=== PATIENT | male | born 1950 | race Caucasian/White ===

== ENCOUNTER 2021-07-09 12:39 | Inpatient (IN) ==
[2021-07-09] MEDS ORDERED: SODIUM CHLORIDE 0.9% 1000ML 1,000 ML IV ONE (13:21)
[2021-07-09 14:03] LABS: Basophils # (auto) 0.02 K/uL (0-0.2); Basophils % (auto) 0.2 %; Eosinophils # (auto) 0.06 K/uL (0-0.5); Eosinophils % (auto) 0.5 %; Hematocrit (blood only) 35.5 % (42-52); Hemoglobin 11.1 g/dL (14.0-18.0); Immature Granulocytes # (auto) 0.03 K/uL (0.00-0.02); Immature Granulocytes % (auto) 0.3 %; Lymphocytes # (auto) 1.18 K/uL (1.2-3.4); Lymphocytes % (auto) 10.6 %; Mean Corpuscular Hemoglobin 24.1 pg (25-34); Mean Corpuscular Hgb Conc 31.3 g/dL (32-36); Mean Platelet Volume 10.3 fL (7.4-10.4); Monocytes % (auto) 9.8 %; Neutrophils # (auto) 8.79 K/uL (1.4-6.5); Neutrophils % (auto) 78.6 %; Platelet Count 312 K/uL (130-400); RDW Coefficient of Variation 18.4 % (11.5-14.5); RDW Standard Deviation 51.9 fL (36.4-46.3); Red Blood Count 4.61 M/uL (4.7-6.1); White Blood Count 11.18 K/uL (4.8-10.8)
--- NOTE | 2021-07-09 14:08 | Emergency Department Note ---
Impression & Plan AMS (altered mental status), Hypomagnesemia, Acute hypotension ED Provider Note NAME: SHEA ALMONTE AGE: 70 SEX: M : 1950 ARRIVES VIA: Walk-In INFORMANT: Patient, the patient's daughter ED PROVIDER(S): Emile Zapata DO CHIEF COMPLAINT: Altered mental status HPI: The patient is a 70-year-old male who presented to the emergency department because of worsening confusion. The patient had a fall recently. He has been s een at a different emergency department twice because of the fall. He states he has had lower extremity pain and injury. He notices swelling in his left knee. He states he has had difficulty ambulating because of this. The patient denies having any vomiting. He denies having any fever. He has had generalized weakness. He has been having trouble getting around. According to his daughter he has had at least 1 episode where he drove the car until it ran out of gas because he forgot to get gas and then proceeded to walk from that point. She has been contacted by many of his friends because are concerned about his alteration in mental status. The patient was not seen by his family doctor. He states he has been compliant with his medications but then his daughter states he has not been taking his Coumadin correctly. He denies having any chest pain but does complain of striking his head. ROS: See above HPI for pertinent positives & negatives. A total of 10 systems reviewed and were otherwise negative. PAST MEDICAL HISTORY: See Below PAST SURGICAL HISTORY: See Below FAMILY HISTORY: See Below SOCIAL HISTORY: See Below HOME MEDICATIONS: See Below ALLERGIES: See Below VITALS: See Below PHYSICAL EXAMINATION: GENERAL: The patient is awake and nonanxious appearing. He answers questions appropriately. He was covered in stool upon arrival and was being cleaned by the nursing staff when I entered the room. EYES: The conjunctivae are clear. The pupils are round and reactive. EARS, NOSE, MOUTH AND THROAT: The nose is without any evidence of any deformity. NECK: The neck is nontender and supple. RESPIRATORY: Normal respiratory effort is noted there is no evidence of wheezing rhonchi or rales CARDIOVASCULAR: Regular rate and rhythm noted there no murmurs rubs or gallops normal S1 normal S2. GASTROINTESTINAL: The abdomen is soft. Abdomen is nontender. MUSCULOSKELETAL/EXTREMITIES: There is pain with range of motion testing of the left knee as well as left hip. There is no deformity of the left hip. There is some tenderness over the lateral aspect of the left knee. There is no significant effusion. SKIN: There is no obvious evidence of any rash. There are no petechiae, pallor or cyanosis noted. NEUROLOGIC: Patient is awake alert and oriented x3 strength is symmetric patellar reflexes are 2+ bilaterally MEDICAL DECISION MAKING: The patient is a 70-year-old male who presented to the emergency department for an evaluation of altered mental status. The patient has had worsening altered mental status over the course of the last few weeks. He has had falls. He has been seen at a different ER multiple times. The patient normally manages his care himself. He drives himself and is able to take his own medications. The patient has been having decline and presented to the emergency department covered in stool and was hypotensive. I discussed the patient's laboratory and radiographic studies with him. Given his findings I also discussed his case with the on-call hospitalist for further inpatient management. He was treated with IV fluids as well as IV magnesium. Triage Nursing notes reviewed. Prior medical records reviewed Vital Signs: reviewed and remarkable for initial hypotension. Differential diagnosis: Infection, hypoglycemia, electrolyte abnormalities, overdose, toxicologic, cardiac sources, intracerebral event, neurologic, trauma, as well as other pathologies. ER treatment provided: See below Diagnostics interpreted by me: ECG: My interpretation is normal sinus rhythm at 70 bpm. There is no ectopy. There is no acute ST segment abnormalities noted. No previous tracing was available. EKG was obtained in the emergency department. Cardiac Monitoring: An order was placed for continuous cardiac monitoring. The monitor shows a rate of 114 bpm with sinus tachycardia Laboratory studies: As stated above and show below. Imaging studies: See below Consultation(s): I discussed this case with Sara who is on for the [facility] hospitalist group. Past Med/Surg History Medical History Cerebral contusion Contusion of right hip Fall Head injury Scalp hematoma Scalp laceration Surgical History History of coronary artery stent placement Social History Smoking Status: Former smoker Feels Safe at Home: Yes Allergies Allergies Allergy/AdvReac Type Severity Reaction Status Date / Time No Known Allergies Allergy Unverified 12/20/19 12:28 Home Meds Home Medications Medication Instructions Recorded Confirmed atorvastatin 80 mg tablet 40 mg PO QPM tab 12/17/19 12/17/19 citalopram 40 mg tablet 20 mg PO DAILY 12/17/19 12/17/19 cyanocobalamin (vitamin B-12) 500 500 mcg PO DAILY 12/17/19 12/17/19 mcg tablet lisinopril 20 mg tablet 20 mg PO DAILY 12/17/19 12/17/19 metformin 850 mg tablet 850 mg PO TID 12/17/19 12/17/19 warfarin 5 mg tablet 5 mg PO DAILY 12/17/19 12/17/19 cholecalciferol (vitamin D3) 125 125 mcg PO DAILY 12/20/19 12/20/19 mcg (5,000 unit) capsule glipizide 5 mg tablet 5 mg PO BID 12/20/19 12/20/19 lisinopril 10 mg tablet 10 mg PO DAILY 12/20/19 12/20/19 metformin 500 mg tablet 500 mg PO BID 12/20/19 12/20/19 metoprolol tartrate 50 mg tablet 25 mg PO BID tab 12/20/19 12/20/19 Results & Data (ED) Vital Signs Vital Signs - 24 hr 07/09/21 12:47 07/09/21 13:54 07/09/21 14:18 Temperature 36.8 C Temperature Source Temporal Artery Scan Pulse Rate 87 Pulse Rate [Finger] 79 Respiratory Rate 14 16 18 Respiratory Effort / Characteristics Non-Labored Spontaneous Non-Labored Respiratory Depth Normal Respiratory Pattern Regular Blood Pressure 86/57 L Blood Pressure [Left Arm] 127/77 Blood Pressure Mean 66 Blood Pressure Mean [Left Arm] 93 Blood Pressure Position Sitting Pulse Oximetry 92 95 98 Oxygen Delivery Method Room Air Room Air Room Air Sepsis Recent Fever Within 48 Hours No Sepsis New/Unexplained Change in Mental Status No Sepsis Action Taken by Nursing No Action Required 07/09/21 14:30 07/09/21 15:00 07/09/21 15:22 Temperature Temperature Source Pulse Rate Pulse Rate [Finger] 114 H Respiratory Rate 19 21 21 Respiratory Effort / Characteristics Non-Labored Non-Labored Non-Labored Respiratory Depth Respiratory Pattern Blood Pressure Blood Pressure [Left Arm] 137/88 Blood Pressure Mean Blood Pressure Mean [Left Arm] 104 Blood Pressure Position Pulse Oximetry 98 98 98 Oxygen Delivery Method Room Air Room Air Room Air Sepsis Recent Fever Within 48 Hours Sepsis New/Unexplained Change in Mental Status Sepsis Action Taken by Group Home Medications Current Medication List: was personally reviewed by me Laboratory Data Attestation: I reviewed the patient's lab results. Result diagrams: 07/09/21 13:41 07/09/21 13:41 Lab Results 07/09/21 07/09/21 07/09/21 Range/Units 13:41 13:41 13:41 WBC (4.8-10.8) K/uL RBC (4.7-6.1) M/uL Hgb (14.0-18.0) g/dL Hct (42-52) % MCV (80-100) fL MCH (25-34) pg MCHC (32-36) g/dL RDW Std Deviation (36.4-46.3) fL RDW Coeff of Karuna (11.5-14.5) % Plt Count (130-400) K/uL MPV (7.4-10.4) fL Immature Gran % (Auto) % Neut % (Auto) % Lymph % (Auto) % [place] % (Auto) % Eos % (Auto) % Baso % (Auto) % Neut # (Auto) (1.4-6.5) K/uL Lymph # (Auto) (1.2-3.4) K/uL [place] # (Auto) (0.11-0.59) K/uL Eos # (Auto) (0-0.5) K/uL Baso # (Auto) (0-0.2) K/uL Immature Gran # (Auto) (0.00-0.02) K/uL ESR 45 H (0-20) mm/hr PT (9.0-12.0) Seconds INR (0.9-1.1) APTT (21.0-31.0) Seconds PTT Ratio Sodium 137 (136-145) mmol/L Potassium 3.6 (3.5-5.1) mmol/L Chloride 101 (98-107) mmol/L Carbon Dioxide 25 (21-32) mmol/L Anion Gap 11 (3-11) BUN 37 H (6-23) mg/dl Creatinine 1.13 (0.6-1.4) mg/dl Est Cr Clr Drug Dosing 63.9 ml/min Est GFR ( Amer) 75.4 ml/min Est GFR (Non-Af Amer) 65.0 ml/min BUN/Creatinine Ratio 32.7 H (10-20) Glucose 117 H (70-99(Fasting)) mg/dl Lactate (0.4-2.0) mmol/L Calcium 9.2 (8.5-10.1) mg/dl Magnesium 1.5 L (1.7-2.4) mg/dl Total Bilirubin 0.9 (0.2-1.0) mg/dl AST 27 (13-39) U/L ALT 15 (7-52) U/L Alkaline Phosphatase 149 H (34-104) U/L Troponin I High Sens 3.7 (0-20) pg/ml C-Reactive Protein < 0.50 (0-0.5) mg/dl Total Protein 7.0 (6.0-8.3) gm/dl Albumin 4.1 (3.4-5.0) gm/dl Globulin 2.9 (2.5-4.0) gm/dl Albumin/Globulin Ratio 1.4 (0.9-2) Procalcitonin < 0.05 (0-0.5) ng/ml Urine Color Urine Appearance (Clear) Urine pH (4.5-7.5) Ur Specific [place] (1.000-1.030) Urine Protein (Negative) Urine Glucose (UA) (Negative) Urine Ketones (Negative) Urine Blood (Negative) Urine Nitrite (Negative) Urine Bilirubin (Negative) Urine Urobilinogen (Negative) Ur Leukocyte Esterase (Negative) Urine WBC (Auto) (0-5) /hpf Urine RBC (Auto) (0-4) /hpf U Hyaline Cast (Auto) (0-5) /lpf U Epithel Cells (Auto) (0-5) /lpf Urine Bacteria (Auto) (Negative) Urine Yeast SARS-CoV-2, RNA, NAAT (NEGATIVE) 07/09/21 07/09/21 07/09/21 Range/Units 13:41 13:41 13:41 WBC 11.18 H (4.8-10.8) K/uL RBC 4.61 L (4.7-6.1) M/uL Hgb 11.1 L (14.0-18.0) g/dL Hct 35.5 L (42-52) % MCV 77.0 L (80-100) fL MCH 24.1 L (25-34) pg MCHC 31.3 L (32-36) g/dL RDW Std Deviation 51.9 H (36.4-46.3) fL RDW Coeff of Karuna 18.4 H (11.5-14.5) % Plt Count 312 (130-400) K/uL MPV 10.3 (7.4-10.4) fL Immature Gran % (Auto) 0.3 % Neut % (Auto) 78.6 % Lymph % (Auto) 10.6 % [place] % (Auto) 9.8 % Eos % (Auto) 0.5 % Baso % (Auto) 0.2 % Neut # (Auto) 8.79 H (1.4-6.5) K/uL Lymph # (Auto) 1.18 L (1.2-3.4) K/uL [place] # (Auto) 1.10 H (0.11-0.59) K/uL Eos # (Auto) 0.06 (0-0.5) K/uL Baso # (Auto) 0.02 (0-0.2) K/uL Immature Gran # (Auto) 0.03 H (0.00-0.02) K/uL ESR (0-20) mm/hr PT 11.1 (9.0-12.0) Seconds INR 1.0 (0.9-1.1) APTT 24.5 (21.0-31.0) Seconds PTT Ratio 0.9 Sodium (136-145) mmol/L Potassium (3.5-5.1) mmol/L Chloride (98-107) mmol/L Carbon Dioxide (21-32) mmol/L Anion Gap (3-11) BUN (6-23) mg/dl Creatinine (0.6-1.4) mg/dl Est Cr Clr Drug Dosing ml/min Est GFR ( Amer) ml/min Est GFR (Non-Af Amer) ml/min BUN/Creatinine Ratio (10-20) Glucose (70-99(Fasting)) mg/dl Lactate 1.0 (0.4-2.0) mmol/L Calcium (8.5-10.1) mg/dl Magnesium (1.7-2.4) mg/dl Total Bilirubin (0.2-1.0) mg/dl AST (13-39) U/L ALT (7-52) U/L Alkaline Phosphatase (34-104) U/L Troponin I High Sens (0-20) pg/ml C-Reactive Protein (0-0.5) mg/dl Total Protein (6.0-8.3) gm/dl Albumin (3.4-5.0) gm/dl Globulin (2.5-4.0) gm/dl Albumin/Globulin Ratio (0.9-2) Procalcitonin (0-0.5) ng/ml Urine Color Urine Appearance (Clear) Urine pH (4.5-7.5) Ur Specific [place] (1.000-1.030) Urine Protein (Negative) Urine Glucose (UA) (Negative) Urine Ketones (Negative) Urine Blood (Negative) Urine Nitrite (Negative) Urine Bilirubin (Negative) Urine Urobilinogen (Negative) Ur Leukocyte Esterase (Negative) Urine WBC (Auto) (0-5) /hpf Urine RBC (Auto) (0-4) /hpf U Hyaline Cast (Auto) (0-5) /lpf U Epithel Cells (Auto) (0-5) /lpf Urine Bacteria (Auto) (Negative) Urine Yeast SARS-CoV-2, RNA, NAAT (NEGATIVE) 07/09/21 07/09/21 Range/Units 15:00 15:25 WBC (4.8-10.8) K/uL RBC (4.7-6.1) M/uL Hgb (14.0-18.0) g/dL Hct (42-52) % MCV (80-100) fL MCH (25-34) pg MCHC (32-36) g/dL RDW Std Deviation (36.4-46.3) fL RDW Coeff of Karuna (11.5-14.5) % Plt Count (130-400) K/uL MPV (7.4-10.4) fL Immature Gran % (Auto) % Neut % (Auto) % Lymph % (Auto) % [place] % (Auto) % Eos % (Auto) % Baso % (Auto) % Neut # (Auto) (1.4-6.5) K/uL Lymph # (Auto) (1.2-3.4) K/uL [place] # (Auto) (0.11-0.59) K/uL Eos # (Auto) (0-0.5) K/uL Baso # (Auto) (0-0.2) K/uL Immature Gran # (Auto) (0.00-0.02) K/uL ESR (0-20) mm/hr PT (9.0-12.0) Seconds INR (0.9-1.1) APTT (21.0-31.0) Seconds PTT Ratio Sodium (136-145) mmol/L Potassium (3.5-5.1) mmol/L Chloride (98-107) mmol/L Carbon Dioxide (21-32) mmol/L Anion Gap (3-11) BUN (6-23) mg/dl Creatinine (0.6-1.4) mg/dl Est Cr Clr Drug Dosing ml/min Est GFR ( Amer) ml/min Est GFR (Non-Af Amer) ml/min BUN/Creatinine Ratio (10-20) Glucose (70-99(Fasting)) mg/dl Lactate (0.4-2.0) mmol/L Calcium (8.5-10.1) mg/dl Magnesium (1.7-2.4) mg/dl Total Bilirubin (0.2-1.0) mg/dl AST (13-39) U/L ALT (7-52) U/L Alkaline Phosphatase (34-104) U/L Troponin I High Sens (0-20) pg/ml C-Reactive Protein (0-0.5) mg/dl Total Protein (6.0-8.3) gm/dl Albumin (3.4-5.0) gm/dl Globulin (2.5-4.0) gm/dl Albumin/Globulin Ratio (0.9-2) Procalcitonin (0-0.5) ng/ml Urine Color Dark Yellow Urine Appearance Clear (Clear) Urine pH 5.0 (4.5-7.5) Ur Specific [place] 1.025 (1.000-1.030) Urine Protein Trace H (Negative) Urine Glucose (UA) Negative (Negative) Urine Ketones 2+ H (Negative) Urine Blood Negative (Negative) Urine Nitrite Negative (Negative) Urine Bilirubin Negative (Negative) Urine Urobilinogen Negative (Negative) Ur Leukocyte Esterase Negative (Negative) Urine WBC (Auto) 1-5 (0-5) /hpf Urine RBC (Auto) 0-4 (0-4) /hpf U Hyaline Cast (Auto) 5-10 H (0-5) /lpf U Epithel Cells (Auto) 10-20 H (0-5) /lpf Urine Bacteria (Auto) Negative (Negative) Urine Yeast Not Reportable SARS-CoV-2, RNA, NAAT NEGATIVE (NEGATIVE) Administered Medications Magnesium Sulfate/Dextrose (Magnesium Sulfate / D5w) 1 gm in 100 mls @ 100 mls/hr IV Q1H TATIANA Stop: 07/09/21 17:10 Last Admin: 07/09/21 15:20 Dose: 100 mls/hr Documented by: [id number] Discontinued Medications Sodium Chloride (Nss 1000ml) 1,000 mls @ 999 mls/hr IV .Q1H1M ONE Stop: 07/09/21 14:21 Last Infusion: 07/09/21 15:17 Dose: 0 mls/hr Documented by: [id number] Admin: 07/09/21 14:14 Dose: 999 mls/hr Documented by: [id number] Imaging Data Radiologist's Impression: Cervical Spine CT 07/09/21 13:21 CT OF THE CERVICAL SPINE WITHOUT CONTRAST CLINICAL HISTORY: Fall. COMPARISON STUDY: Cervical spine CT November 11, 2014. TECHNIQUE: Helical axial images of the cervical spine were obtained without IV contrast. Sagittal and coronal reconstructions were viewed. Automated exposure control was utilized for the study. A dose lowering technique was utilized adhering to the principles of ALARA. FINDINGS: Alignment of the cervical spine is anatomic. Vertebral body heights are maintained. No acute cervical spine fracture or subluxation is present. There is no prevertebral edema. Facet joints are intact. Moderate multilevel degenerative disc disease and facet arthrosis is present. Loss of height of the superior endplate of T2 is unchanged since CT of November 11, 2014. Slight loss of height of the superior endplate of T1 is also unchanged. No acute fracture is identified on this exam. IMPRESSION: No acute cervical spine fracture or subluxation. ACT 112: Negative or not required by law. Electronically signed by: Jae Franklin M.D. 07/09/2021 2:[address] 07/09/21 13:21 CT head/brain wo con CLINICAL HISTORY: fall Technique: Contiguous axial CT images of the head were acquired from the base of the skull to the vertex without intravenous contrast administration. Images were viewed in brain, subdural and bone windows. Automated dose lowering techniques and/or adjustment according to patient size were utilized for this exam. Comparison: Comparison is made to CT head 1950 Findings: Areas of decreased attenuation are present in the periventricular and subcortical white matter bilaterally consistent with small vessel ischemic disease. Generalized cerebral atrophy with commensurate enlargement of the ventricles, sulci, and cisterns is also present. There is no acute intracranial hemorrhage or evidence of acute territorial infarction. No shift of the midline structures, mass effect, or extra-axial abnormalities are shown. Atherosclerotic calcifications are present in the intracranial segments of the internal carotid arteries. Imaged portions of the paranasal sinuses and mastoid air cells are clear. The orbits appear normal. There are no acute fractures of the calvaria or scalp swelling. Impression: No acute intracranial hemorrhage, no evidence of acute territorial infarction or other acute intracranial disease process. ACT 112: Negative or not required by law. Electronically signed by: Marcos Chanel M.D. 07/09/2021 2:22 PM Hip/Pelvis X-Ray 07/09/21 13:21 XR hip LT 2V w pelvis CLINICAL HISTORY: fall TECHNIQUE: 2 views of the left hip and single frontal view of the pelvis were obtained. Single view of the right pelvis was obtained pain. Comparison: None available at the time of this dictation. FINDINGS: There is no evidence of an acute fracture. Severe degenerative changes are seen in the bilateral hip joints. No soft tissue abnormality is seen. IMPRESSION: Severe degenerative changes without evidence of acute abnormality. ACT 112: Negative or not required by law. Electronically signed by: Marcos Chanel M.D. 07/09/2021 2:45 PM Knee X-Ray 07/09/21 13:21 XR knee LT 1 or 2V routine HISTORY: 70 years-old Male fall acute pain and swelling of the left knee status post fall COMPARISON: None TECHNIQUE: 2 views of the left knee FINDINGS: Total joint arthroplasty with patellar resurfacing. Trace joint effusion. Elia icated ossifications within the suprapatellar tissues. No acute fracture, dislocation or evidence of hardware loosening. Ill-defined ovoid lucencies project over the distal femoral diaphysis on the AP view, without correlate on the lateral projection. These may be projectional. IMPRESSION: 1. No acute fracture. 2. Unremarkable appearance of the total joint arthroplasty. ACT 112: Negative or not required by law. The above report was generated using voice recognition software. It may contain grammatical, syntax or spelling errors. Electronically signed by: Kemal Ibrahim M.D. 07/09/2021 2:53 PM Chest X-Ray 07/09/21 13:22 SINGLE VIEW CHEST CLINICAL HISTORY: Sepsis. FINDINGS: An AP, portable, upright chest radiograph is compared to study dated 05/27/2013 and correlated with chest CT dated 11/11/2014. The heart is top normal for projection noting atherosclerotic calcification of the thoracic aorta. The lungs and pleural spaces are clear. No pneumothorax is seen. The skeletal structures are osteopenic. There are healed left-sided rib fractures. Postsurgical change is noted in the upper abdomen. IMPRESSION: No active disease in the chest. ACT 112: Negative or not required by law. Electronically signed by: Jarret Larkin M.D. 07/09/2021 2:40 PM Discharge Plan Visit Data Chief Complaint: Altered Mental Status Stated Complaint: ALTERED MENTAL STATUS ED Provider: Emile Zapata Discharge Problem: AMS (altered mental status), Hypomagnesemia, Acute hypotension Patient Disposition: Being Evaluated by Hospitalist Forms Stand Alone Forms: [facility] Prescriptions Prescriptions: No Action citalopram 40 mg tablet 20 mg PO DAILY RF: 0 atorvastatin 80 mg tablet 40 mg PO QPM RF: 0 cyanocobalamin (vitamin B-12) 500 mcg tablet 500 mcg PO DAILY RF: 0 lisinopril 20 mg tablet 20 mg PO DAILY RF: 0 warfarin 5 mg tablet 5 mg PO DAILY RF: 0 metformin 850 mg tablet 850 mg PO TID RF: 0 cholecalciferol (vitamin D3) 125 mcg (5,000 unit) capsule 125 mcg PO DAILY RF: 0 metformin 500 mg tablet 500 mg PO BID RF: 0 glipizide 5 mg tablet 5 mg PO BID RF: 0 lisinopril 10 mg tablet 10 mg PO DAILY RF: 0 metoprolol tartrate 50 mg tablet 25 mg PO BID RF: 0 Referrals Referrals: Fye,Sagrario, PA-C [Primary Care Provider] - Discharge Problem: AMS (altered mental status) Qualifiers: Altered mental status type: unspecified Qualified Code(s): R41.82 - Altered mental status, unspecified
[2021-07-09 14:18] LABS: Partial Thromboplastin Ratio 0.9; Partial Thromboplastin Time 24.5 Seconds (21.0-31.0); Prothrombin Time 11.1 Seconds (9.0-12.0)
--- NOTE | 2021-07-09 14:23 | CT Scan Report ---
CT head/brain wo con CLINICAL HISTORY: fall Technique: Contiguous axial CT images of the head were acquired from the base of the skull to the umu adonay without intravenous contrast administration. Images were viewed in brain, subdural and bone [facility]. Automated dose lowering techniques and/or adjustment according to patient size were utilized for this exam. Comparison: Comparison is made to CT head 1950 Findings: Areas of decreased attenuation are present in the periventricular and subcortical white matter bilate rally consistent with small vessel ischemic disease. Generalized cerebral atrophy with commensurate e nlargement of the ventricles, sulci, and cisterns is also present. There is no acute intracranial hem orrhage or evidence of acute territorial infarction. No shift of the midline structures, mass effect, or extra-axial abnormalities are shown. Atherosclerotic calcifications are present in the intracran ial segments of the internal carotid arteries. Imaged portions of the paranasal sinuses and mastoid air cells are clear. The orbits appear normal. There are no acute fractures of the calvaria or scalp swelling. Impression: No acute intracranial hemorrhage, no evidence of acute territorial infarction or other acute intracra nial disease process. ACT 112: Negative or not required by law. Electronically signed by: Marcos Chanel M.D. 07/09/2021 2:22 PM
--- NOTE | 2021-07-09 14:30 | CT Scan Report ---
CT OF THE CERVICAL SPINE WITHOUT CONTRAST CLINICAL HISTORY: Fall. COMPARISON STUDY: Cervical spine CT November 11, 2014. TECHNIQUE: Helical axial images of the cervical spine were obtained without IV contrast. Sagittal a nd coronal reconstructions were viewed. Automated exposure control was utilized for the study. A do se lowering technique was utilized adhering to the principles of ALARA. FINDINGS: Alignment of the cervical spine is anatomic. Vertebral body heights are maintained. No acut e cervical spine fracture or subluxation is present. There is no prevertebral edema. Facet joints are intact. Moderate multilevel degenerative disc disease and facet arthrosis is present. Loss of heigh t of the superior endplate of T2 is unchanged since CT of November 11, 2014. Slight loss of height o f the superior endplate of T1 is also unchanged. No acute fracture is identified on this exam. IMPRESSION: No acute cervical spine fracture or subluxation. ACT 112: Negative or not required by law. Electronically signed by: Jae Franklin M.D. 07/09/2021 2:29 PM
[2021-07-09 14:37] LABS: Alanine Aminotransferase 15 U/L (7-52); Albumin Globulin Ratio 1.4 (0.9-2); Albumin Level 4.1 gm/dl (3.4-5.0); Alkaline Phosphatase 149 U/L (34-104); Anion Gap 11 (3-11); Aspartate Aminotransferase 27 U/L (13-39); BUN Creatinine Ratio 32.7 (10-20); Bilirubin,Total 0.9 mg/dl (0.2-1.0); Blood Urea Nitrogen 37 mg/dl (6-23); C Reactive Protein < 0.50 mg/dl (0-0.5); Calcium 9.2 mg/dl (8.5-10.1); Carbon Dioxide 25 mmol/L (21-32); Chloride 101 mmol/L (98-107); Creatinine Clr Calc Pharmacy 63.9 ml/min; Est GFR (African American) 75.4 ml/min; Globulin 2.9 gm/dl (2.5-4.0); Glucose 117 mg/dl (70-99(Fasting)); Magnesium 1.5 mg/dl (1.7-2.4); Potassium 3.6 mmol/L (3.5-5.1); Sodium 137 mmol/L (136-145); Troponin I High Sensitivity 3.7 pg/ml (0-20)
--- NOTE | 2021-07-09 14:42 | XRay Report ---
SINGLE VIEW CHEST CLINICAL HISTORY: Sepsis. FINDINGS: An AP, portable, upright chest radiograph is compared to study dated 05/27/2013 and correlate d with chest CT dated 11/11/2014. The heart is top normal for projection noting atherosclerotic calcif ication of the thoracic aorta. The lungs and pleural spaces are clear. No pneumothorax is seen. The s keletal structures are osteopenic. There are healed left-sided rib fractures. Postsurgical change is noted in the upper abdomen. IMPRESSION: No active disease in the chest. ACT 112: Negative or not required by law. Electronically signed by: Jarret Larkin M.D. 07/09/2021 2:40 PM
--- NOTE | 2021-07-09 14:47 | XRay Report ---
XR hip LT 2V w pelvis CLINICAL HISTORY: fall TECHNIQUE: 2 views of the left hip and single frontal view of the pelvis were obtained. Single view o f the right pelvis was obtained pain. Comparison: None available at the time of this dictation. FINDINGS: There is no evidence of an acute fracture. Severe degenerative changes are seen in the bilateral hip joints. No soft tissue abnormality is seen. IMPRESSION: Severe degenerative changes without evidence of acute abnormality. ACT 112: Negative or not required by law. Electronically signed by: Marcos Chanel M.D. 07/09/2021 2:45 PM
--- NOTE | 2021-07-09 14:54 | XRay Report ---
XR knee LT 1 or 2V routine HISTORY: 70 years-old Male fall acute pain and swelling of the left knee status post fall COMPARISON: None TECHNIQUE: 2 views of the left knee FINDINGS: Total joint arthroplasty with patellar resurfacing. Trace joint effusion. Corticated ossifications wi thin the suprapatellar tissues. No acute fracture, dislocation or evidence of hardware loosening. Ill -defined ovoid lucencies project over the distal femoral diaphysis on the AP view, without correlate on the lateral projection. These may be projectional. IMPRESSION: 1. No acute fracture. 2. Unremarkable appearance of the total joint arthroplasty. ACT 112: Negative or not required by law. The above report was generated using voice recognition software. It may contain grammatical, syntax o r spelling errors. Electronically signed by: Kemal Ibrahim M.D. 07/09/2021 2:53 PM
[2021-07-09] MEDS: MAGNESIUM SULFATE / D5W 1 GM/100 ML BAG IV SCH ×2 (15:20→16:36)
[2021-07-09 15:26] LABS: Appearance Urine Clear (Clear); Bacteria Urine Automated Negative (Negative); Bilirubin Urine Negative (Negative); Blood Urine Negative (Negative); Color Urine Dark Yellow; Glucose Urine UA Negative (Negative); Ketones Urine 2+ (Negative); Leukocyte Esterase Urine Negative (Negative); Nitrite Urine Negative (Negative); Protein Urine Trace (Negative); RBC Urine Automated 0-4 /hpf (0-4); Specific Gravity Urine 1.025 (1.000-1.030); Urobilinogen Urine Negative (Negative)
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
[2021-07-09] MEDS ORDERED: DEXTROSE 50% 50 ML SYRINGE IV PRN (18:24)
[2021-07-09] MEDS ORDERED: GLUCOSE 40% GEL 15 GM TUBE PO PRN (18:24)
[2021-07-09] MEDS ORDERED: GLUCOSE 10 TABS/TUBE PO PRN (18:24)
[2021-07-09] MEDS ORDERED: CARBOHYDRATES FOR HYPOGLYCEMIA PO PRN (18:24)
[2021-07-09] MEDS ORDERED: ACETAMINOPHEN 325 MG TAB PO PRN (18:24)
[2021-07-09] MEDS ORDERED: GLUCAGON FOR INJ 1 MG VIAL SQ PRN (18:24)
[2021-07-09 18:42] LABS: Ferritin 23.2 ng/ml (8-388)
[2021-07-09 18:43] LABS: Phosphorus 3.5 mg/dl (2.5-4.9)
[2021-07-09 18:48] LABS: Folate (Folic Acid) > 22.30 ng/ml (>5.38)
[2021-07-09 18:49] LABS: Vitamin B12 745 pg/ml (180-914)
[2021-07-09] MEDS ORDERED: Heparin IV Adult Wt-Based Low-Dose *NO* Bolus Protocol IV SCH (18:55)
[2021-07-09] MEDS ORDERED: HEPARIN SODIUM/DEXTROSE 25,000 UNITS/500 ML BAG IV SCH (19:15)
[2021-07-09] MEDS: INSULIN ASPART PER UNIT SC SCH (20:31)
[2021-07-09] MEDS: ATORVASTATIN 40 MG TAB PO SCH (20:32)
[2021-07-09] MEDS: METOPROLOL TARTRATE 50 MG TAB PO SCH (20:32)
[2021-07-09] MEDS ORDERED: GADOBUTROL 65ML VIAL IV ONE (23:38)
[2021-07-10 02:03] LABS: Partial Thromboplastin Ratio 1.2
--- NOTE | 2021-07-10 07:31 | Magnetic Resonance Report ---
MRI OF THE BRAIN COMBO CLINICAL HISTORY: Change in mental status. Atrial fibrillation. COMPARISON STUDY: CT of the brain dated 07/09/2021. TECHNIQUE: MRI of the brain was performed utilizing various T1 and T2-weighted sequences in the axial , sagittal, and coronal planes. Contrast-enhanced sequences were acquired following the administratio n of 8 cc of Gadavist. FINDINGS: Brain parenchyma: There is age-related involutional change noting advanced confluent subcortical and periventricular microangiopathic disease. A focus of hemosiderin deposition in the right cerebellar h emisphere could represent a cavernoma versus a site of remote hemorrhage. No acute hemorrhage is iden tified and there is no mass effect. There is no restricted diffusion to suggest acute ischemia. No en hancing mass lesion is identified on the postcontrast images. Chin-white matter differentiation is pr eserved. No extra-axial fluid collection is seen. The cerebellar tonsils are normal in configuration. Ventricles, sulci, and cisterns: Prominent secondary to involutional change. Pituitary and sella: Unremarkable. Intracranial vasculature: Normal flow voids are maintained at the skull base. Orbits: The bony orbits are grossly intact. Orbital contents are normal in appearance noting bilatera l ocular lens implants. Sinuses and mastoids: Clear. Calvarium: Unremarkable. Cervical cord: Partially visualized cervical spinal cord is normal in morphology and signal intensity . IMPRESSION: Chronic changes as above with no acute intracranial abnormality identified. ACT 112: Negative or not required by law. Electronically signed by: Jarret Larkin M.D. 07/10/2021 7:30 AM
[2021-07-10] MEDS: METOPROLOL TARTRATE 50 MG TAB PO SCH ×2 (07:54→20:13)
[2021-07-10] MEDS: CHOLECALCIFEROL 5,000 UNITS 125 MCG TAB PO SCH (07:55)
[2021-07-10] MEDS: CYANOCOBALAMIN (B-12) 500 MCG TABLET PO SCH (07:56)
[2021-07-10] MEDS: FOLIC ACID 1 MG TAB PO SCH (07:56)
[2021-07-10] MEDS: INSULIN ASPART PER UNIT SC SCH ×4 (08:08→20:16)
[2021-07-10] MEDS ORDERED: lisinopril 10 MG TAB PO SCH (09:00)
[2021-07-10 09:30] LABS: Basophils # (auto) 0.04 K/uL (0-0.2); Basophils % (auto) 0.6 %; Eosinophils # (auto) 0.11 K/uL (0-0.5); Eosinophils % (auto) 1.6 %; Hematocrit (blood only) 35.4 % (42-52); Hemoglobin 11.2 g/dL (14.0-18.0); Immature Granulocytes # (auto) 0.01 K/uL (0.00-0.02); Immature Granulocytes % (auto) 0.1 %; Lymphocytes % (auto) 20.7 %; Mean Corpuscular Hemoglobin 25.2 pg (25-34); Mean Corpuscular Hgb Conc 31.6 g/dL (32-36); Mean Corpuscular Volume 79.7 fL (80-100); Mean Platelet Volume 11.1 fL (7.4-10.4); Monocytes # (auto) 0.58 K/uL (0.11-0.59); Monocytes % (auto) 8.6 %; Neutrophils # (auto) 4.62 K/uL (1.4-6.5); Neutrophils % (auto) 68.4 %; Platelet Count 301 K/uL (130-400); RDW Coefficient of Variation 18.5 % (11.5-14.5); RDW Standard Deviation 54.1 fL (36.4-46.3); Red Blood Count 4.44 M/uL (4.7-6.1); White Blood Count 6.76 K/uL (4.8-10.8)
[2021-07-10 09:33] LABS: Partial Thromboplastin Ratio 1.3; Partial Thromboplastin Time 35.8 Seconds (21.0-31.0)
[2021-07-10 09:42] LABS: BUN Creatinine Ratio 30.8 (10-20); Calcium 8.8 mg/dl (8.5-10.1); Creatinine Clr Calc Pharmacy 79.3 ml/min; Est GFR (African American) 97.9 ml/min; Est GFR (Non-African American) 84.5 ml/min; Magnesium 1.8 mg/dl (1.7-2.4); Potassium 4.1 mmol/L (3.5-5.1)
--- NOTE | 2021-07-10 09:58 | Electrocardiogram Report ---
Test Reason : Blood Pressure : / mmHG Vent. Rate : 078 BPM Atrial Rate : 078 BPM P-R Int : 140 ms QRS Dur : 082 ms QT Int : 370 ms P-R-T Axes : 026 022 060 degrees QTc Int : 421 ms Normal sinus rhythm Normal ECG No previous ECGs available Confirmed by Oziel Duncan ([id number]) on 07/10/2021 9:58:11 AM Referred By: REFERRED SELF Confirmed By:Donaldo Duncan
[2021-07-10] MEDS ORDERED: HEPARIN SOD (PORCINE) 1000 UNIT/ML IV ONE (10:15)
--- NOTE | 2021-07-10 11:42 | Hospitalist Progress Note ---
Date of Service July 10, 2021 Assessment & Plan (1) AMS (altered mental status): Plan: Discussed with daughter. Based on symptom profile Altered mental status appear to be progression of dementia No sign of infection at this time Brain MRI did not show acute abnormality. Showed chroinc changes noting advance subcortical and periventricular microangiopathic disease. A focus of hemosiderin deposition in the right cerebellar hemisphere could represent a cavernoma versus a site of remote hemorrhage. (2) Hypomagnesemia: Plan: Mag was 1.5 on admission Repleted. Mag is 1.8 today (3) Acute hypotension: Plan: Was hypotensive in ER on presentation at 86/57 Improved with IVF BP is 93/58 Stop lisinopril home med for now and monitor. May needs to be discontinued indefinitely depending on BP trend prior to dc Continue metoprolol with holding parameters. (4) PAF (paroxysmal atrial fibrillation): Plan: Pt was previously on warfarin for anticoagulation but non-compliant with required labs and has been falling frequently Was put on heparin drip on admission Considering frequent falls and Brain MRI did not show acute findings but noted foci of hemosiderin deposition that could be carvenoma vs remote hemorrhage, I called daughter to have a conversation about anticoagulation We discussed risks and benefits She reported she had been thinking about this and has decided to stop anticoagulation going forward. Heparin drip discontinued. She is ok with subcut hep for DVT ppx while inpatient only. (5) Diabetes mellitus with neuropathy: Plan: Unclear if pt has been compliant with current regimen which seems to be Metformin, Glipizide and Ozempic Hold oral meds Diabetic diet and BSGs Insulin sliding scale A1c is 8.7 DVt ppx- hep sq (6) Coronary artery disease: (7) Hyperlipidemia: (8) Depression: (9) Hypertension: Admission and Anticipated Discharge Date Admission Date: July 09, 2021 Subjective Patient seen and examined Currently denied any symptoms Denied any chest pain, cough, shortness of breath Denied any headache, dizziness Denied any nausea, vomiting, abd pain, diarrhea Denied dysuria, frequency, urgency When asked about reason for hospitalization, he mentioned he "fell last week and family brought him in" Limited insight. When asked about frequent falls, he acknowledged he has been falling frequently but stated he always trips on something. Physical Exam Constitutional: + well hydrated; no acute distress Eyes: PERRL, conjunctivae normal, anicteric sclerae ENMT: external ear and nose normal, oropharynx normal Respiratory: normal respiratory effort, lungs clear to auscultation Cardiovascular: Rate/Rhythm: regular rate and regular rhythm S1 S2 Gastrointestinal (Abdomen): normal bowel sounds, soft, nontender, no hepatosplenomegaly Musculoskeletal: No pedal edema Neurologic: PERRL, EOMI, accommodation nl, no face palsy, no dysarthria Alert and oriented to person, place, month and year. Some memory deficits Results & Data Results & Data ([facility]) Vital Signs (Past 12 Hours) Vital Signs Temp Pulse Pulse Resp BP Pulse Ox 07/10/21 10:44 37.2 C 62 18 93/58 L 94 07/10/21 07:16 89 07/10/21 06:21 36.8 C 99 H 18 100/67 95 07/10/21 02:24 36.8 C 94 H 18 96/62 L 95 Laboratory Results Abnormal lab results 07/09/21 07/09/21 07/09/21 Range/Units 13:41 13:41 13:41 WBC 11.18 H (4.8-10.8) K/uL RBC 4.61 L (4.7-6.1) M/uL Hgb 11.1 L (14.0-18.0) g/dL Hct 35.5 L (42-52) % MCV 77.0 L (80-100) fL MCH 24.1 L (25-34) pg MCHC 31.3 L (32-36) g/dL RDW Std Deviation 51.9 H (36.4-46.3) fL RDW Coeff of Karuna 18.4 H (11.5-14.5) % MPV (7.4-10.4) fL Neut # (Auto) 8.79 H (1.4-6.5) K/uL Lymph # (Auto) 1.18 L (1.2-3.4) K/uL Kittson # (Auto) 1.10 H (0.11-0.59) K/uL Immature Gran # (Auto) 0.03 H (0.00-0.02) K/uL ESR 45 H (0-20) mm/hr APTT (21.0-31.0) Seconds Sodium (136-145) mmol/L BUN 37 H (6-23) mg/dl BUN/Creatinine Ratio 32.7 H (10-20) Glucose 117 H (70-99(Fasting)) mg/dl POC Glucose (70-99) mg/dl Magnesium 1.5 L (1.7-2.4) mg/dl Alkaline Phosphatase 149 H (34-104) U/L Urine Protein (Negative) Urine Ketones (Negative) U Hyaline Cast (Auto) (0-5) /lpf U Epithel Cells (Auto) (0-5) /lpf 07/09/21 07/09/21 07/09/21 Range/Units 15:00 18:39 20:00 WBC (4.8-10.8) K/uL RBC (4.7-6.1) M/uL Hgb (14.0-18.0) g/dL Hct (42-52) % MCV (80-100) fL MCH (25-34) pg MCHC (32-36) g/dL RDW Std Deviation (36.4-46.3) fL RDW Coeff of Karuna (11.5-14.5) % MPV (7.4-10.4) fL Neut # (Auto) (1.4-6.5) K/uL Lymph # (Auto) (1.2-3.4) K/uL Kitt[place] # (Auto) (0.11-0.59) K/uL Immature Gran # (Auto) (0.00-0.02) K/uL ESR (0-20) mm/hr APTT (21.0-31.0) Seconds Sodium (136-145) mmol/L BUN (6-23) mg/dl BUN/Creatinine Ratio (10-20) Glucose (70-99(Fasting)) mg/dl POC Glucose 121 H 246 H (70-99) mg/dl Magnesium (1.7-2.4) mg/dl Alkaline Phosphatase (34-104) U/L Urine Protein Trace H (Negative) Urine Ketones 2+ H (Negative) U Hyaline Cast (Auto) 5-10 H (0-5) /lpf U Epithel Cells (Auto) 10-20 H (0-5) /lpf 07/10/21 07/10/21 07/10/21 Range/Units 01:39 07:24 08:42 WBC (4.8-10.8) K/uL RBC 4.44 L (4.7-6.1) M/uL Hgb 11.2 L (14.0-18.0) g/dL Hct 35.4 L (42-52) % MCV 79.7 L (80-100) fL MCH (25-34) pg MCHC 31.6 L (32-36) g/dL RDW Std Deviation 54.1 H (36.4-46.3) fL RDW Coeff of Karuna 18.5 H (11.5-14.5) % MPV 11.1 H (7.4-10.4) fL Neut # (Auto) (1.4-6.5) K/uL Lymph # (Auto) (1.2-3.4) K/uL Kitt[place] # (Auto) (0.11-0.59) K/uL Immature Gran # (Auto) (0.00-0.02) K/uL ESR (0-20) mm/hr APTT 33.0 H (21.0-31.0) Seconds Sodium (136-145) mmol/L BUN (6-23) mg/dl BUN/Creatinine Ratio (10-20) Glucose (70-99(Fasting)) mg/dl POC Glucose 149 H (70-99) mg/dl Magnesium (1.7-2.4) mg/dl Alkaline Phosphatase (34-104) U/L Urine Protein (Negative) Urine Ketones (Negative) U Hyaline Cast (Auto) (0-5) /lpf U Epithel Cells (Auto) (0-5) /lpf 07/10/21 07/10/21 07/10/21 Range/Units 08:42 08:42 11:26 WBC (4.8-10.8) K/uL RBC (4.7-6.1) M/uL Hgb (14.0-18.0) g/dL Hct (42-52) % MCV (80-100) fL MCH (25-34) pg MCHC (32-36) g/dL RDW Std Deviation (36.4-46.3) fL RDW Coeff of Karuna (11.5-14.5) % MPV (7.4-10.4) fL Neut # (Auto) (1.4-6.5) K/uL Lymph # (Auto) (1.2-3.4) K/uL [place] # (Auto) (0.11-0.59) K/uL Immature Gran # (Auto) (0.00-0.02) K/uL ESR (0-20) mm/hr APTT 35.8 H (21.0-31.0) Seconds Sodium 134 L (136-145) mmol/L BUN 28 H (6-23) mg/dl BUN/Creatinine Ratio 30.8 H (10-20) Glucose 253 H (70-99(Fasting)) mg/dl POC Glucose 182 H (70-99) mg/dl Magnesium (1.7-2.4) mg/dl Alkaline Phosphatase (34-104) U/L Urine Protein (Negative) Urine Ketones (Negative) U Hyaline Cast (Auto) (0-5) /lpf U Epithel Cells (Auto) (0-5) /lpf (1) AMS (altered mental status) Altered mental status type: unspecified Qualified Code(s): R41.82 - Altered mental status, unspecified
[2021-07-10 11:46] LABS: Estimated Average Glucose 203 mg/dl; Hemoglobin A1C 8.7 % (4.5-5.6)
[2021-07-10] MEDS: HEPARIN SOD 5,000 UNIT/0.5 ML VIAL SQ SCH ×2 (13:34→20:12)
[2021-07-10] MEDS: ATORVASTATIN 40 MG TAB PO SCH (20:12)
[2021-07-11] MEDS: HEPARIN SOD 5,000 UNIT/0.5 ML VIAL SQ SCH ×3 (05:51→20:10)
[2021-07-11 07:50] LABS: Hematocrit (blood only) 37.6 % (42-52); Hemoglobin 11.7 g/dL (14.0-18.0); Mean Corpuscular Hemoglobin 24.2 pg (25-34); Mean Corpuscular Hgb Conc 31.1 g/dL (32-36); Mean Corpuscular Volume 77.8 fL (80-100); Mean Platelet Volume 10.9 fL (7.4-10.4); Platelet Count 298 K/uL (130-400); RDW Coefficient of Variation 18.4 % (11.5-14.5); RDW Standard Deviation 52.4 fL (36.4-46.3); Red Blood Count 4.83 M/uL (4.7-6.1); White Blood Count 6.38 K/uL (4.8-10.8)
[2021-07-11] MEDS: METOPROLOL TARTRATE 50 MG TAB PO SCH ×2 (08:02→20:11)
[2021-07-11] MEDS: FOLIC ACID 1 MG TAB PO SCH (08:02)
[2021-07-11] MEDS: CYANOCOBALAMIN (B-12) 500 MCG TABLET PO SCH (08:02)
[2021-07-11] MEDS: CHOLECALCIFEROL 5,000 UNITS 125 MCG TAB PO SCH (08:02)
[2021-07-11] MEDS: INSULIN ASPART PER UNIT SC SCH ×4 (08:07→20:22)
[2021-07-11 08:11] LABS: Calcium 8.9 mg/dl (8.5-10.1); Creatinine Clr Calc Pharmacy 90.2 ml/min; Est GFR (African American) 104.2 ml/min; Est GFR (Non-African American) 89.9 ml/min; Potassium 3.8 mmol/L (3.5-5.1)
--- NOTE | 2021-07-11 18:11 | Hospitalist Progress Note ---
Date of Service July 11, 2021 Assessment & Plan (1) AMS (altered mental status): Plan: Altered mental status Likely progression of dementia MRI Brain:Chronic changes as above with no acute intracranial abnormality identified. A focus of hemosiderin deposition in the right cerebellar hemisphere could represent a cavernoma versus a site of remote hemorrhage. No signs of infection Fall Ambulatory Dysfunction PT/OT Needs Rehab placement (2) Hypomagnesemia: Plan: Replete as needed (3) Acute hypotension: Plan: Presented with hypotension with SBP in 80s BP improved with IVF lisinopril discontinued Continue metoprolol with holding parameters. (4) PAF (paroxysmal atrial fibrillation): Plan: Patient was previously on warfarin for anticoagulation but non-compliant with required labs and has been falling frequently Considering frequent falls and Brain MRI did not show acute findings but noted foci of hemosiderin deposition that could be carvenoma vs remote hemorrhage: Prior Hospitalist discussed with patient, Pt's daughter about anticoagulation, risks and benefits were discussed and decision was made to discontinue anticoagulation (5) Diabetes mellitus with neuropathy: Plan: HbA1c is 8.7 ? Compliance Hold oral meds Diabetic diet and BSGs Insulin sliding scale while hospitalized DVT Px: Heparin SQ Code Status Full Code Disposition Needs Rehab (6) Coronary artery disease: (7) Hyperlipidemia: (8) Depression: (9) Hypertension: Admission and Anticipated Discharge Date Admission Date: July 10, 2021 Subjective Patient is seen and examined at bedside States having left leg pain on weightbearing and with ambulation Denies any chest pain, shortness of breath, dizziness, nausea, abdominal pain Offers no other complaints Review of Systems Review of Systems: All systems reviewed & are unremarkable except as noted in Subjective Physical Exam Physical Exam: Physical Exam: Vitals signs as noted above General Appearance:Thin, no apparent distress Head: normocephalic, Atraumatic Eyes: normal inspection, EOMI Neck: supple, Trachea midline Respiratory/Chest: Normal breath sounds, CTA, No accessory muscle use Cardiovascular: S1, S2, No murmur Abdomen/GI:Soft, Non tender, Bowel sounds present Extremities/Musculoskeletal:normal inspection, no edema Neurologic/Psych:AAO, grossly no focal neurological deficits Skin: normal color, warm Results & Data Results & Data ([facility]) Vital Signs (Past 12 Hours) Vital Signs Temp Pulse Pulse Resp BP BP Pulse Ox 07/11/21 17:46 81 07/11/21 10:57 36.6 C 72 18 104/70 96 07/11/21 06:31 37.0 C 95 H 18 105/70 95 Laboratory Results Short CBC 07/11/21 Range/Units 06:36 WBC 6.38 (4.8-10.8) K/uL Hgb 11.7 L (14.0-18.0) g/dL Hct 37.6 L (42-52) % Plt Count 298 (130-400) K/uL BMP 07/11/21 06:36 Sodium 136 Potassium 3.8 Chloride 102 Carbon Dioxide 27 BUN 20 Creatinine 0.80 Glucose 142 H Calcium 8.9 (1) AMS (altered mental status) Altered mental status type: unspecified Qualified Code(s): R41.82 - Altered mental status, unspecified
[2021-07-11] MEDS: ATORVASTATIN 40 MG TAB PO SCH (20:10)
[2021-07-12] MEDS: HEPARIN SOD 5,000 UNIT/0.5 ML VIAL SQ SCH ×3 (05:07→20:46)
[2021-07-12] MEDS: CHOLECALCIFEROL 5,000 UNITS 125 MCG TAB PO SCH (07:39)
[2021-07-12] MEDS: CYANOCOBALAMIN (B-12) 500 MCG TABLET PO SCH (07:40)
[2021-07-12] MEDS: FOLIC ACID 1 MG TAB PO SCH (07:40)
[2021-07-12] MEDS: METOPROLOL TARTRATE 50 MG TAB PO SCH ×2 (07:40→20:46)
[2021-07-12] MEDS: INSULIN ASPART PER UNIT SC SCH ×4 (08:24→20:45)
--- NOTE | 2021-07-12 17:13 | Hospitalist Progress Note ---
Date of Service July 12, 2021 Assessment & Plan (1) AMS (altered mental status): Plan: Altered mental status Likely progression of Alzheimer's dementia MRI Brain:Chronic changes as above with no acute intracranial abnormality identified. A focus of hemosiderin deposition in the right cerebellar hemisphere could represent a cavernoma versus a site of remote hemorrhage. No signs of infection Mood stable Reorient to minimize delirium Fall Ambulatory Dysfunction PT/OT Needs Rehab placement Waiting for rehab placement (2) Hypomagnesemia: Plan: Replete as needed (3) Acute hypotension: Plan: Presented with hypotension with SBP in 80s BP improved with IVF lisinopril discontinued Continue metoprolol with holding parameters. (4) PAF (paroxysmal atrial fibrillation): Plan: Patient was previously on warfarin for anticoagulation but non-compliant with required labs and has been falling frequently Considering frequent falls and Brain MRI did not show acute findings but noted foci of hemosiderin deposition that could be carvenoma vs remote hemorrhage: Prior Hospitalist discussed with patient, Pt's daughter about anticoagulation, risks and benefits were discussed and decision was made to discontinue anticoagulation (5) Diabetes mellitus with neuropathy: Plan: HbA1c is 8.7 ? Compliance Hold oral meds Diabetic diet and BSGs Insulin sliding scale while hospitalized DVT Px: Heparin SQ Code Status Full Code Disposition Rehab when arranged (6) Coronary artery disease: (7) Hyperlipidemia: (8) Depression: (9) Hypertension: Admission and Anticipated Discharge Date Admission Date: July 10, 2021 Subjective Patient is seen and examined at bedside No new complaints Leg pain is better today Waiting for rehab placement Denies any chest pain, shortness of breath, dizziness, nausea, abdominal pain Review of Systems Review of Systems: All systems reviewed & are unremarkable except as noted in Subjective Physical Exam Physical Exam: Physical Exam: Vitals signs as noted above General Appearance:Thin, no apparent distress Head: normocephalic, Atraumatic Eyes: normal inspection, EOMI Neck: supple, Trachea midline Respiratory/Chest: Normal breath sounds, CTA, No accessory muscle use Cardiovascular: S1, S2, No murmur Abdomen/GI:Soft, Non tender, Bowel sounds present Extremities/Musculoskeletal:normal inspection, no edema Neurologic/Psych:AAO, grossly no focal neurological deficits Skin: normal color, warm Results & Data Results & Data ([facility]) Vital Signs (Past 12 Hours) Vital Signs Temp Pulse Pulse Resp BP BP Pulse Ox 07/12/21 15:35 83 07/12/21 14:00 36.3 C L 75 18 100/68 97 07/12/21 11:06 36.7 C 83 18 103/69 95 07/12/21 06:43 36.7 C 97 H 20 101/71 96 (1) AMS (altered mental status) Altered mental status type: unspecified Qualified Code(s): R41.82 - Altered mental status, unspecified
[2021-07-12] MEDS: ATORVASTATIN 40 MG TAB PO SCH (20:46)
[2021-07-13] MEDS: HEPARIN SOD 5,000 UNIT/0.5 ML VIAL SQ SCH ×3 (05:13→20:17)
[2021-07-13] MEDS: METOPROLOL TARTRATE 50 MG TAB PO SCH ×2 (08:34→20:17)
[2021-07-13] MEDS: CHOLECALCIFEROL 5,000 UNITS 125 MCG TAB PO SCH (08:34)
[2021-07-13] MEDS: FOLIC ACID 1 MG TAB PO SCH (08:34)
[2021-07-13] MEDS: CYANOCOBALAMIN (B-12) 500 MCG TABLET PO SCH (08:34)
[2021-07-13] MEDS: INSULIN ASPART PER UNIT SC SCH ×4 (08:41→20:16)
--- NOTE | 2021-07-13 18:17 | Hospitalist Progress Note ---
Date of Service July 13, 2021 Assessment & Plan (1) AMS (altered mental status): Plan: Altered mental status Likely progression of Alzheimer's dementia MRI Brain:Chronic changes as above with no acute intracranial abnormality identified. A focus of hemosiderin deposition in the right cerebellar hemisphere could represent a cavernoma versus a site of remote hemorrhage. No signs of infection Mood stable Reorient to minimize delirium Mental status seem to be at baseline currently Fall Ambulatory Dysfunction PT/OT Needs Rehab placement Waiting for rehab placement (2) Hypomagnesemia: Plan: Replete as needed (3) Acute hypotension: Plan: Presented with hypotension with SBP in 80s BP improved with IVF lisinopril discontinued Continue metoprolol with holding parameters. (4) PAF (paroxysmal atrial fibrillation): Plan: Patient was previously on warfarin for anticoagulation but non-compliant with required labs and has been falling frequently Considering frequent falls and Brain MRI did not show acute findings but noted foci of hemosiderin deposition that could be carvenoma vs remote hemorrhage: Prior Hospitalist discussed with patient, Pt's daughter about anticoagulation, risks and benefits were discussed and decision was made to discontinue anticoagulation (5) Diabetes mellitus with neuropathy: Plan: HbA1c is 8.7 ? Compliance Hold oral meds Diabetic diet and BSGs Insulin sliding scale while hospitalized DVT Px: Heparin SQ Code Status Full Code Disposition Rehab when arranged (6) Coronary artery disease: (7) Hyperlipidemia: (8) Depression: (9) Hypertension: Admission and Anticipated Discharge Date Admission Date: July 10, 2021 Subjective Patient is seen and examined at bedside Leg pain is minimal Waiting for rehab placement Denies any chest pain, shortness of breath, dizziness, nausea, abdominal pain No other complaints Review of Systems Review of Systems: All systems reviewed & are unremarkable except as noted in Subjective Physical Exam Physical Exam: Physical Exam: Vitals signs as noted above General Appearance:Thin, no apparent distress Head: normocephalic, Atraumatic Eyes: normal inspection, EOMI Neck: supple, Trachea midline Respiratory/Chest: Normal breath sounds, CTA, No accessory muscle use Cardiovascular: S1, S2, No murmur Abdomen/GI:Soft, Non tender, Bowel sounds present Extremities/Musculoskeletal:normal inspection, no edema Neurologic/Psych:AAO, grossly no focal neurological deficits Skin: normal color, warm Results & Data Results & Data ([facility]) Vital Signs (Past 12 Hours) Vital Signs Temp Pulse Pulse Pulse Resp BP BP 07/13/21 16:10 71 07/13/21 15:53 36.9 C 74 18 104/68 07/13/21 12:33 36.9 C 79 18 94/61 L 07/13/21 07:39 36.9 C 82 16 107/66 07/13/21 07:07 83 07/13/21 06:43 36.9 C 82 20 102/71 Pulse Ox 07/13/21 16:10 07/13/21 15:53 97 07/13/21 12:33 96 07/13/21 07:39 96 07/13/21 07:07 07/13/21 06:43 96 (1) AMS (altered mental status) Altered mental status type: unspecified Qualified Code(s): R41.82 - Altered mental status, unspecified
[2021-07-13] MEDS: ATORVASTATIN 40 MG TAB PO SCH (20:16)
[2021-07-14] MEDS: HEPARIN SOD 5,000 UNIT/0.5 ML VIAL SQ SCH ×3 (05:24→20:38)
[2021-07-14] MEDS: FOLIC ACID 1 MG TAB PO SCH (09:20)
[2021-07-14] MEDS: CYANOCOBALAMIN (B-12) 500 MCG TABLET PO SCH (09:20)
[2021-07-14] MEDS: CHOLECALCIFEROL 5,000 UNITS 125 MCG TAB PO SCH (09:20)
[2021-07-14] MEDS: METOPROLOL TARTRATE 50 MG TAB PO SCH ×2 (09:20→20:38)
[2021-07-14] MEDS: INSULIN ASPART PER UNIT SC SCH ×4 (09:24→20:39)
--- NOTE | 2021-07-14 17:37 | Hospitalist Progress Note ---
Date of Service July 14, 2021 Assessment & Plan (1) AMS (altered mental status): Plan: Altered mental status Likely progression of Alzheimer's dementia MRI Brain:Chronic changes as above with no acute intracranial abnormality identified. A focus of hemosiderin deposition in the right cerebellar hemisphere could represent a cavernoma versus a site of remote hemorrhage. No signs of infection Mood stable Reorient to minimize delirium Mental status seem to be at baseline currently Fall Ambulatory Dysfunction PT/OT Needs Rehab placement Waiting for rehab placement (2) Hypomagnesemia: Plan: Replete as needed (3) Acute hypotension: Plan: Presented with hypotension with SBP in 80s BP improved with IVF lisinopril discontinued Continue metoprolol with holding parameters. (4) PAF (paroxysmal atrial fibrillation): Plan: Patient was previously on warfarin for anticoagulation but non-compliant with required labs and has been falling frequently Considering frequent falls and Brain MRI did not show acute findings but noted foci of hemosiderin deposition that could be carvenoma vs remote hemorrhage: Prior Hospitalist discussed with patient, Pt's daughter about anticoagulation, risks and benefits were discussed and decision was made to discontinue anticoagulation (5) Diabetes mellitus with neuropathy: Plan: HbA1c is 8.7 ? Compliance Hold oral meds Diabetic diet and BSGs Insulin sliding scale while hospitalized DVT Px: Heparin SQ Code Status Full Code Disposition Waiting for rehab placement (6) Coronary artery disease: (7) Hyperlipidemia: (8) Depression: (9) Hypertension: Admission and Anticipated Discharge Date Admission Date: July 10, 2021 Subjective Patient is seen and examined at bedside No significant change from yesterday Leg pain is controlled l Waiting for rehab placement Denies any chest pain, shortness of breath, dizziness, nausea, abdominal pain Physical Exam Physical Exam: Physical Exam: Vitals signs as noted above General Appearance:Thin, no apparent distress Head: normocephalic, Atraumatic Eyes: normal inspection, EOMI Neck: supple, Trachea midline Respiratory/Chest: Normal breath sounds, CTA, No accessory muscle use Cardiovascular: S1, S2, No murmur Abdomen/GI:Soft, Non tender, Bowel sounds present Extremities/Musculoskeletal:normal inspection, no edema Neurologic/Psych:AAO, grossly no focal neurological deficits Skin: normal color, warm Results & Data Results & Data ([facility]) Vital Signs (Past 12 Hours) Vital Signs Temp Pulse Pulse Resp BP Pulse Ox 07/14/21 15:03 37.0 C 72 20 104/71 96 07/14/21 11:41 36.9 C 76 20 93/59 L 96 07/14/21 09:19 78 106/68 07/14/21 08:00 76 07/14/21 07:39 76 07/14/21 07:19 36.8 C 61 18 96/63 L 96 (1) AMS (altered mental status) Altered mental status type: unspecified Qualified Code(s): R41.82 - Altered mental status, unspecified
[2021-07-14] MEDS: ATORVASTATIN 40 MG TAB PO SCH (20:38)
[2021-07-15] MEDS: HEPARIN SOD 5,000 UNIT/0.5 ML VIAL SQ SCH ×3 (05:36→20:18)
[2021-07-15] MEDS: INSULIN ASPART PER UNIT SC SCH ×4 (08:40→20:17)
[2021-07-15] MEDS: CYANOCOBALAMIN (B-12) 500 MCG TABLET PO SCH (08:42)
[2021-07-15] MEDS: METOPROLOL TARTRATE 50 MG TAB PO SCH ×2 (08:42→20:18)
[2021-07-15] MEDS: FOLIC ACID 1 MG TAB PO SCH (08:42)
[2021-07-15] MEDS: CHOLECALCIFEROL 5,000 UNITS 125 MCG TAB PO SCH (08:42)
[2021-07-15] MEDS: ATORVASTATIN 40 MG TAB PO SCH (20:18)
--- NOTE | 2021-07-15 20:48 | Hospitalist Progress Note ---
Date of Service July 15, 2021 Assessment & Plan (1) AMS (altered mental status): Plan: Altered mental status Likely progression of Alzheimer's dementia MRI Brain:Chronic changes as above with no acute intracranial abnormality identified. A focus of hemosiderin deposition in the right cerebellar hemisphere could represent a cavernoma versus a site of remote hemorrhage. No signs of infection Mood stable Reorient to minimize delirium Mental status seem to be at baseline currently Fall Ambulatory Dysfunction PT/OT Needs Rehab placement Waiting for rehab placement (2) Hypomagnesemia: Plan: Replete as needed (3) Acute hypotension: Plan: Presented with hypotension with SBP in 80s BP improved with IVF lisinopril discontinued Continue metoprolol with holding parameters. (4) PAF (paroxysmal atrial fibrillation): Plan: Patient was previously on warfarin for anticoagulation but non-compliant with required labs and has been falling frequently Considering frequent falls and Brain MRI did not show acute findings but noted foci of hemosiderin deposition that could be carvenoma vs remote hemorrhage: Prior Hospitalist discussed with patient, Pt's daughter about anticoagulation, risks and benefits were discussed and decision was made to discontinue anticoagulation (5) Diabetes mellitus with neuropathy: Plan: HbA1c is 8.7 ? Compliance Hold oral meds Diabetic diet and BSGs Insulin sliding scale while hospitalized DVT Px: Heparin SQ Code Status Full Code Disposition Waiting for rehab placement (6) Coronary artery disease: (7) Hyperlipidemia: (8) Depression: (9) Hypertension: Admission and Anticipated Discharge Date Admission Date: July 10, 2021 Subjective Patient is seen and examined at bedside No new complaints Waiting for rehab placement Denies any chest pain, shortness of breath, dizziness, nausea, abdominal pain Review of Systems Review of Systems: All systems reviewed & are unremarkable except as noted in Subjective Physical Exam Physical Exam: Physical Exam: Vitals signs as noted above General Appearance:Thin, no apparent distress Head: normocephalic, Atraumatic Eyes: normal inspection, EOMI Neck: supple, Trachea midline Respiratory/Chest: Normal breath sounds, CTA, No accessory muscle use Cardiovascular: S1, S2, No murmur Abdomen/GI:Soft, Non tender, Bowel sounds present Extremities/Musculoskeletal:normal inspection, no edema Neurologic/Psych:AAO, grossly no focal neurological deficits Skin: normal color, warm Results & Data Results & Data ([facility]) Vital Signs (Past 12 Hours) Vital Signs Temp Pulse Pulse Resp BP BP Pulse Ox 05/22/22 19:07 36.9 C 76 20 108/72 95 07/15/21 15:19 76 07/15/21 14:47 36.7 C 77 20 97/59 L 97 07/15/21 11:07 36.9 C 72 20 110/74 96 (1) AMS (altered mental status) Altered mental status type: unspecified Qualified Code(s): R41.82 - Altered mental status, unspecified
[2021-07-16] MEDS: HEPARIN SOD 5,000 UNIT/0.5 ML VIAL SQ SCH (05:55)
[2021-07-16] MEDS: CHOLECALCIFEROL 5,000 UNITS 125 MCG TAB PO SCH (08:09)
[2021-07-16] MEDS: CYANOCOBALAMIN (B-12) 500 MCG TABLET PO SCH (08:09)
[2021-07-16] MEDS: FOLIC ACID 1 MG TAB PO SCH (08:09)
[2021-07-16] MEDS: METOPROLOL TARTRATE 50 MG TAB PO SCH (08:10)
[2021-07-16] MEDS: INSULIN ASPART PER UNIT SC SCH ×2 (08:14→12:37)
--- NOTE | 2021-07-16 11:48 | Hospitalist Progress Note ---
Date of Service July 16, 2021 Assessment & Plan (1) AMS (altered mental status): Plan: Altered mental status Likely progression of Alzheimer's dementia MRI Brain:Chronic changes as above with no acute intracranial abnormality identified. A focus of hemosiderin deposition in the right cerebellar hemisphere could represent a cavernoma versus a site of remote hemorrhage. No signs of infection Mood stable Reorient to minimize delirium Mental status seem to be at baseline Fall Ambulatory Dysfunction PT/OT Plan to discharge to SNF today (2) Hypomagnesemia: Plan: Replete as needed (3) Acute hypotension: Plan: Presented with hypotension with SBP in 80s BP improved with IVF lisinopril discontinued Continue metoprolol with holding parameters. (4) PAF (paroxysmal atrial fibrillation): Plan: Patient was previously on warfarin for anticoagulation but non-compliant with required labs and has been falling frequently Considering frequent falls and Brain MRI did not show acute findings but noted foci of hemosiderin deposition that could be carvenoma vs remote hemorrhage: Prior Hospitalist discussed with patient, Pt's daughter about anticoagulation, risks and benefits were discussed and decision was made to discontinue anticoagulation (5) Diabetes mellitus with neuropathy: Plan: HbA1c is 8.7 ? Compliance Hold oral meds Diabetic diet and BSGs Insulin sliding scale while hospitalized DVT Px: Heparin SQ Code Status Full Code Disposition SNF (6) Coronary artery disease: (7) Hyperlipidemia: (8) Depression: (9) Hypertension: Admission and Anticipated Discharge Date Admission Date: July 10, 2021 Subjective Patient is seen and examined at bedside Doing well Plan to be discharged to SNF today Denies any chest pain, shortness of breath, dizziness, nausea, abdominal pain No new complaints Review of Systems Review of Systems: All systems reviewed & are unremarkable except as noted in Subjective Physical Exam Physical Exam: Physical Exam: Vitals signs as noted above General Appearance:Thin, no apparent distress Head: normocephalic, Atraumatic Eyes: normal inspection, EOMI Neck: supple, Trachea midline Respiratory/Chest: Normal breath sounds, CTA, No accessory muscle use Cardiovascular: S1, S2, No murmur Abdomen/GI:Soft, Non tender, Bowel sounds present Extremities/Musculoskeletal:normal inspection, no edema Neurologic/Psych:AAO, grossly no focal neurological deficits Skin: normal color, warm Results & Data Results & Data ([facility]) Vital Signs (Past 12 Hours) Vital Signs Temp Pulse Pulse Resp BP Pulse Ox 07/16/21 07:40 36.4 C L 67 16 111/74 96 07/16/21 06:16 63 07/16/21 04:05 36.5 C 66 18 110/74 95 (1) AMS (altered mental status) Altered mental status type: unspecified Qualified Code(s): R41.82 - Altered mental status, unspecified
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
== END 2021-07-16 13:26 | DRG 57 ==
LOC: ED 12:39 → 2N 12:39 → SUATTDRO 17:06 → 2N 18:46 → SUATTDRO 07-10 11:32
DX: Z95.5 Presence of coronary angioplasty implant and graft; I95.9 Hypotension, unspecified; Z79.1 Long term (current) use of non-steroidal anti-inflammatories (NSAID); E78.5 Hyperlipidemia, unspecified; K21.9 Gastro-esophageal reflux disease without esophagitis; E11.42 Type 2 diabetes mellitus with diabetic polyneuropathy; I48.0 Paroxysmal atrial fibrillation; F32.A Depression, unspecified; R29.6 Repeated falls; F02.80 Dementia in other diseases classified elsewhere, unspecified severity, without behavioral disturbance, psychotic disturbance, mood disturbance, and anxiety; Z79.84 Long term (current) use of oral hypoglycemic drugs; Z98.84 Bariatric surgery status; E83.42 Hypomagnesemia; Z87.891 Personal history of nicotine dependence; Z91.19 Patient's noncompliance with other medical treatment and regimen; I25.10 Atherosclerotic heart disease of native coronary artery without angina pectoris; G30.9 Alzheimer's disease, unspecified; I10 Essential (primary) hypertension